=== PATIENT | male | born 1960 | race Caucasian/White ===

== ENCOUNTER 2016-08-01 07:23 | Emergency (ER) | payer SELFPAY ==
[~2016-08-01] VITALS: Ht 165.1 cm; Wt 74.8 kg
[2016-08-01] MEDS ORDERED: LIDOCAINE 2% VISCOUS 15 ML UDC PO ONE (07:45)
[2016-08-01] MEDS ORDERED: ANTACID SUSP 30 ML UDC (MYLANTA) PO ONE (07:45)
--- NOTE | 2016-08-01 07:55 | ED Abdominal Pain ---
General Chief Complaint: Abdominal/GI Problems Stated Complaint: INDEGESTION Nursing Triage Note: ADM TO ED C/O EPISGASTRIC PAIN ON AND OFF FOR 2MONTHS STARTED AFTER DRINKING TEQULILA . Sepsis Screen: No Definite Risk Source of Information: Patient Exam Limitations: No Limitations History of Present Illness Time Seen By Provider: 07:25 Initial Comments This 55-year-old gentleman presents to the emergency room with complaints of epigastric and right upper quadrant abdominal pain fairly persistently over the past 2 months. He noticed the pain started after drinking 4 or 5 shots of alcohol 2 months ago. Although pain is constant, it waxes and wanes in intensity. Eating does not seem to affect it much. He took antacids this morning which she thought were minimally helpful. The pain woke him from sleep this morning. Presently he rates the pain as 4 or 5 out of 10. He use to drink alcohol heavily. He was in the habit of drinking 3-4 days per week, 2-4 drinks per day. He states no alcohol use in the past 3-4 weeks. He has mild associated nausea without vomiting. He denies any constipation, diarrhea, dysuria, or hematuria. He does have a little bit of urinary frequency which she has attributed to age. He last ate at breakfast shortly before arrival. His last bowel movement was this morning and was normal. He has historically has had very few health problems and does not have a local doctor. He is presently uninsured which is a barrier to his care. Allergies and Home Medications Allergies Coded Allergies: No Known Drug Allergies (Unverified , 08/01/16) Home Medications Omeprazole 20 Mg Capsule., 20 MG PO BID, #60 Prescribed by: DOMINIQUE GUZMÁN on 08/01/16 0900 Review of Systems Constitutional: no symptoms reported EENTM: No Symptoms Reported Respiratory: No Symptoms Reported Cardiovascular: No Symptoms Reported Gastrointestinal: See HPI Genitourinary: See HPI Musculoskeletal: no symptoms reported Skin: no symptoms reported Psychiatric/Neurological: No Symptoms Reported Endocrine: No Symptoms Reported Past Lprhfcz-Olkbbj-Euysqm Hx Patient Social History Alcohol Use: Regular Use Recreational Drug Use: No Smoking Status: Never a Smoker Recent Foreign Travel: No Contact w/Someone Who Travel: No Recent Infectious Disease Expo: No Surgeries HX Surgeries: Yes Surgeries: Abdominal (hernia) Respiratory Hx Respiratory Disorders: No Cardiovascular Hx Cardiac Disorders: No Neurological Hx Neurological Disorders: No Reproductive System Hx Reproductive Disorders: No Genitourinary Hx Genitourinary Disorders: No Gastrointestinal Hx Gastrointestinal Disorders: No Musculoskeletal Hx Musculoskeletal Disorders: No Endocrine Hx Endocrine Disorders: No HEENT HX ENT Disorders: No Cancer Hx Cancer: No Psychosocial Hx Psychiatric Problems: No Family Medical History Significant Family History: Cancer (breast cancer in mother) Physical Exam Vital Signs VS - Last 72 Hours, by Label 08/01/16 08/01/16 07:27 09:06 Temp 96.9 Pulse 65 64 Resp 18 18 B/P (MAP) 144/88 Pulse Ox 96 98 O2 Delivery Room Air Capillary Refill : Less Than 3 Seconds General Appearance: WD/WN, no apparent distress HEENT: PERRL/EOMI, normal ENT inspection, pharynx normal Respiratory: lungs clear, normal breath sounds, no respiratory distress, no accessory muscle use Cardiovascular: regular rate, rhythm, no edema, no murmur Gastrointestinal: normal bowel sounds, non tender, soft Extremities: normal inspection, no pedal edema Neurologic/Psychiatric: naturopathic doctor II-XII nml as tested, no motor/sensory deficits, alert, normal mood/affect, oriented x 3 Skin: normal color, warm/dry Progress/Results/Core Measures Results/Orders Lab Results Laboratory Tests Test 08/01/16 08:05 08/01/16 08:08 Range/Units White Blood Count 4.2 L 4.3-11.0 10^3/uL Red Blood Count 4.78 4.35-5.85 10^6/uL Hemoglobin 14.7 13.3-17.7 G/DL Hematocrit 43 40-54 % Mean Corpuscular Volume 90 80-99 FL Mean Corpuscular Hemoglobin 31 25-34 PG Mean Corpuscular Hemoglobin Concent 34 32-36 G/DL Red Cell Distribution Width 12.0 10.0-14.5 % Platelet Count 226 130-400 10^3/uL Mean Platelet Volume 9.7 7.4-10.4 FL Neutrophils (%) (Auto) 67 42-75 % Lymphocytes (%) (Auto) 22 12-44 % Monocytes (%) (Auto) 9 0-12 % Eosinophils (%) (Auto) 1 0-10 % Basophils (%) (Auto) 1 0-10 % Neutrophils # (Auto) 2.8 1.8-7.8 X 10^3 Lymphocytes # (Auto) 0.9 L 1.0-4.0 X 10^3 Monocytes # (Auto) 0.4 0.0-1.0 X 10^3 Eosinophils # (Auto) 0.0 0.0-0.3 10^3/uL Basophils # (Auto) 0.0 0.0-0.1 10^3/uL Sodium Level 141 135-145 MMOL/L Potassium Level 3.9 3.6-5.0 MMOL/L Chloride Level 107 98-107 MMOL/L Carbon Dioxide Level 25 21-32 MMOL/L Anion Gap 9 5-14 MMOL/L Blood Urea Nitrogen 22 H 7-18 MG/DL Creatinine 0.85 0.60-1.30 MG/DL Estimat Glomerular Filtration Rate > 60 BUN/Creatinine Ratio 26 H 0-20 Glucose Level 128 H 70-105 MG/DL Calcium Level 9.2 8.5-10.1 MG/DL Total Bilirubin 0.6 0.1-1.0 MG/DL Aspartate Amino Transf (AST/SGOT) 53 H 5-34 U/L Alanine Aminotransferase (ALT/SGPT) 84 H 0-55 U/L Alkaline Phosphatase 52 40-136 U/L Total Protein 7.4 6.4-8.2 GM/DL Albumin 4.0 3.2-4.5 GM/DL Lipase 23 8-78 U/L Urine Color YELLOW Urine Clarity CLEAR Urine pH 6.5 5-9 Urine Specific [place] 1.015 L 1.016-1.022 Urine Protein 2+ H NEGATIVE Urine Glucose (UA) NEGATIVE NEGATIVE Urine Ketones 1+ H NEGATIVE Urine Nitrite NEGATIVE NEGATIVE Urine Bilirubin 1+ H NEGATIVE Urine Urobilinogen 4 H NORMAL MG/DL Urine Leukocyte Esterase 1+ H NEGATIVE Urine RBC (Auto) NEGATIVE NEGATIVE Urine RBC RARE /HPF Urine WBC RARE /HPF Urine Squamous Epithelial Cells NONE /HPF Urine Crystals NONE /LPF Urine Bacteria NEGATIVE /HPF Urine Casts NONE /LPF Urine Mucus MODERATE H /LPF Urine Culture Indicated NO My Orders Orders - DOMINIQUE LOWRY MD Lidocaine 2% Viscous 15 Ml (Xylocaine Vi (08/01/16 07:45) Antacid Suspension (Mylanta Suspension (08/01/16 07:45) Cbc With Automated Diff (08/01/16 07:53) Comprehensive Metabolic Panel (08/01/16 07:53) Lipase (08/01/16 07:53) Ua Culture If Indicated (08/01/16 07:53) Saline Lock/Iv-Start (08/01/16 07:53) Hepatitis Panel Acute (08/01/16 08:50) Medications Given in ED Current Medications Medications Dose Ordered Sig/Ronal Route Start Time Stop Time Status Last Admin Dose Admin Al Hydrox/Mg Hydrox/Simethicone 30 ml ONCE ONCE PO 08/01/16 07:45 08/01/16 07:46 DC 08/01/16 07:41 30 ML Lidocaine HCl 15 ml ONCE ONCE PO 08/01/16 07:45 08/01/16 07:46 DC 08/01/16 07:41 15 ML Vital Signs/I&O Vital Sign - Last 12Hours 08/01/16 08/01/16 07:27 09:06 Temp 96.9 Pulse 65 64 Resp 18 18 B/P (MAP) 144/88 Pulse Ox 96 98 O2 Delivery Room Air Blood Pressure Mean: 106 Progress Note #1: Time: 07:59 Progress Note GI cocktail did not significantly improve his pain. Workup proceeded with labs and UA. Progress Note #2: Progress Note Lab work revealed mild elevation in transaminases. Patient does have risk factors for hepatitis including prior history of IV drug use. A hepatitis panel was added to the blood work. The importance of follow-up was discussed with the patient. I recommended a fasting liver and gallbladder ultrasound. I also informed him he needed to review the hepatitis screening results with a primary care provider. Appointment was made for him with Miracle Yates at [facility]. See discharge instructions. Departure Impression Impression: Primary Impression: Epigastric pain Additional Impressions: Right upper quadrant pain Elevated liver enzymes Disposition: 01 HOME, SELF-CARE Condition: Stable Departure-Patient Inst. Decision time for Depature: 08:50 Referrals: NO,LOCAL PHYSICIAN (PCP) Primary Care Physician [facility] Patient Instructions: Acute Abdomen (Belly Pain), Adult (DC) Add. Discharge Instructions: Take Omeprazole twice daily as prescribed. Follow-up with a primary care provider as soon as possible. Retun to the ER if symptoms worsen. You have an appointment with Miracle Yates at the [facility] August 04 at 1:20 pm. Please call [phone] on Wednesday to confirm the appointment. A copy of your record from this visit will be sent to the [facility]. At your follow-up appointment please specifically discuss performing liver and gallbladder ultrasound imaging when this can be done fasting. You also need to discuss the results of your hepatitis screening. Avoid the following that may worsen stomach irritation: Eating large meals, eating close to bedtime, alcohol, tobacco, chocolate, carbonation, caffeine, citrus fruits and juices, tomato products, spicy foods, fatty or greasy foods, NSAID medication such as ibuprofen or naproxen, or anything else you know irritates your stomach. Avoid Tylenol (acetaminophen) and alcohol as they may worsen your liver function. Consider completing business and financial counsel paperwork with [facility]. All discharge instructions reviewed with patient and/or family. Voiced understanding. Scripts Omeprazole (Omeprazole) 20 Mg Capsule. 20 MG PO BID, #60 CAP Prov: DOMINIQUE LOWRY MD 08/01/16 Copy Copies To 1: NABEEL ZIMMERMAN MD, JOSHUA T MD Aug 01, 2016 07:55
[2016-08-01 08:13] LABS: BASOPHILS % (AUTO) 1 % (0-10); EOSINOPHILS % (AUTO) 1 % (0-10); LYMPHOCYTES # (AUTO) 0.9 X 10^3 (1.0-4.0); LYMPHOCYTES % (AUTO) 22 % (12-44); MEAN CORPUSCULAR HEMOGLOBIN 31 PG (25-34); MEAN CORPUSCULAR HGB CONC 34 G/DL (32-36); MEAN CORPUSCULAR VOLUME 90 FL (80-99); MEAN PLATELET VOLUME 9.7 FL (7.4-10.4); MONOCYTES # (AUTO) 0.4 X 10^3 (0.0-1.0); MONOCYTES % (AUTO) 9 % (0-12); NEUTROPHILS # (AUTO) 2.8 X 10^3 (1.8-7.8); NEUTROPHILS % (AUTO) 67 % (42-75); PLATELET COUNT 226 10^3/uL (130-400); RED BLOOD COUNT 4.78 10^6/uL (4.35-5.85); WHITE BLOOD COUNT 4.2 10^3/uL (4.3-11.0)
[2016-08-01 08:19] LABS: KETONES,URINE 1+ (NEGATIVE); LEUKOCYTE ESTERASE ,URINE 1+ (NEGATIVE); NITRITE,URINE NEGATIVE (NEGATIVE); PH,URINE 6.5 (5-9); PROTEIN,URINE 2+ (NEGATIVE); UROBILINOGEN,URINE 4 MG/DL (NORMAL)
[2016-08-01 08:20] LABS: BILIRUBIN,URINE 1+ (NEGATIVE)
[2016-08-01 08:21] LABS: WBC,URINE RARE /HPF
[2016-08-01 08:32] LABS: ALANINE AMINOTRANSFERASE 84 U/L (0-55); ANION GAP 9 MMOL/L (5-14); ASPARTATE AMINO TRANSFERASE 53 U/L (5-34); BILIRUBIN,TOTAL 0.6 MG/DL (0.1-1.0); BLOOD UREA NITROGEN 22 MG/DL (7-18); BUN/CREATININE RATIO 26 (0-20); CALCIUM 9.2 MG/DL (8.5-10.1); CARBON DIOXIDE 25 MMOL/L (21-32); CHLORIDE 107 MMOL/L (98-107); CREATININE SERUM 0.85 MG/DL (0.60-1.30); GFR ESTIMATED > 60; GLUCOSE 128 MG/DL (70-105); HEMOLYSIS 13 (-100-29); ICTERUS 0.8 (-100-1.9); LIPASE 23 U/L (8-78); LIPEMIA 11 (-100-49); POTASSIUM 3.9 MMOL/L (3.6-5.0); SODIUM 141 MMOL/L (135-145); TOTAL PROTEIN 7.4 GM/DL (6.4-8.2)
[2016-08-01] MEDS ORDERED: OMEP20CA12 PO (09:00)
[2016-08-01 09:06] VITALS: BP 148/86
[2016-08-03 15:28] LABS: HCV INDEX >11.00 Index (0.00-0.79)
== END 2016-08-01 09:06 | disposition home or self-care (01) ==
LOC: ER 07:25
DX: R10.13 Epigastric pain (principal); R10.11 Right upper quadrant pain; R94.5 Abnormal results of liver function studies; Z87.19 Personal history of other diseases of the digestive system
CPT/HCPCS: 36415; 80053; 80074; 81000; 83690; 85025

== ENCOUNTER → 2016-08-07 | Outpatient (CLI) | payer OTHER ==
[~2016-08-07] MED LIST: OMEP20CA12 PO
--- NOTE | 2016-08-07 17:49 | Diagnostic Imaging Report ---
PROCEDURE: US abdomen complete. TECHNIQUE: Multiple real-time grayscale images were obtained over the abdomen in various projections. INDICATION: Abdominal pain. Hepatitis C. FINDINGS: The pancreas is largely obscured by bowel gas. The liver is fairly homogeneous with no focal lesion. There is hepatopetal flow in the portal vein. The gallbladder demonstrates no stones or wall thickening. The CBD is obscured by bowel gas. No intrahepatic biliary dilatation is evident. The spleen is 9.5 cm in length. The right kidney is 11.6 and the left kidney is 11.5 cm in length. There is no hydronephrosis or focal lesion. No ascites is seen. Sonographic Espinosa's sign is reportedly negative. The IVC and the abdominal aorta are largely obscured. The distal abdominal aorta however is seen and is normal in caliber at 1.8 cm. IMPRESSION: No definite abnormality. Dictated by: Dictated on workstation # [id number]
== END ==
LOC: RAD 08:58
PROVIDERS: ATTEND Nurse Practitioner Family
DX: R10.11 Right upper quadrant pain (principal); R10.13 Epigastric pain; B19.20 Unspecified viral hepatitis C without hepatic coma
CPT/HCPCS: 76700

== ENCOUNTER → 2019-03-13 | Outpatient (CLI) | payer OTHER ==
[~2019-03-13] MED LIST changes: +GADOBUTROL 7.5 MMOL/7.5 ML (GADAVIST) VIAL IV ONE; +IOHEXOL 300 MG/ML 50 ML (OMNIPAQUE 300) VIAL IV ONE; +OMEP-280 PO; -OMEP20CA12 PO
== END ==
LOC: RAD 09:37
PROVIDERS: ATTEND Nurse Practitioner
DX: S43.431A Superior glenoid labrum lesion of right shoulder, initial encounter (principal); X58.XXXA Exposure to other specified factors, initial encounter